=== PATIENT | male | born 1970 | race Caucasian/White ===

== ENCOUNTER → 2017-09-18 | Outpatient (CLI) | payer BC ==
--- NOTE | 2017-09-18 07:51 | MR ---
EXAMINATION TYPE: MR knee RT wo con DATE OF EXAM: 09/18/2017 COMPARISON: NONE HISTORY: Right knee pain per order. Pain, locking sensation, and swelling for over 6 months per patie nt. TECHNIQUE: Multiplanar, multisequence images of the knee is performed without IV contrast. FINDINGS: Evaluation suboptimal due to patient's large body habitus, dedicated knee coil could not be utilized. MEDIAL MENISCUS: Anterior horn is intact without tear. Posterior horn is blunted with abnormal obliqu e signal extending to inferior articular surface sagittal image 9 LATERAL MENISCUS: Anterior and posterior horns are intact without tear. CRUCIATE LIGAMENTS: The anterior and posterior cruciate ligaments are intact. Increased signal distal fibers is present near tibial insertion of ACL. COLLATERAL LIGAMENTS: The medial collateral ligament and lateral collateral ligament complex are inta ct. Mild fluid signal surrounds lateral collateral ligament complex. More moderate fluid signal surro unds medial collateral ligament. EXTENSOR MECHANISM: Visualized quadriceps and patellar tendons are intact. EFFUSION: There is large suprapatellar joint effusion. POPLITEAL CYST: No popliteal/naidu cyst. TRICOMPARTMENT SPACES: There is mild to moderate tricompartment joint space loss and mild spurring mo st prominent patellofemoral compartment. CARTILAGE: There is chondromalacia patella with thinning of articular cartilage particularly superior ly and medially seen best sagittal image 17. Near full-thickness loss at this level is felt present. There is thinning of articular cartilage medial tibiofemoral compartment. BONE MARROW SIGNAL: Heterogeneity consistent with red marrow reconversion is seen. There is increased signal consistent with bone marrow edema medial tibiofemoral compartment most prominent over the med ial tibial plateau coronal image 22 for reference. OTHER: Increased cutaneous fluid superficial infrapatellar space is noted. IMPRESSION: 1. Full-thickness tear posterior horn of medial meniscus. 2. Moderate MCL sprain injury. 3. Osseous contusion and or bone marrow edema medial aspect medial tibiofemoral compartment most prom inent in the tibial plateau. 4. Background fairly moderate tricompartment degenerative changes as detailed above most prominent pa tellofemoral and medial tibiofemoral compartments somewhat pronounced for patient's age. Chondromalac ia patella is present. 5. Large suprapatellar joint effusion. 6. Mild LCL complex sprain injury. 7. Myxoid degeneration ACL.
== END | disposition home or self-care (01) ==
LOC: RADMRIMAIN 06:40
PROVIDERS: ATTEND Orthopaedic Surgery
DX: S83.241A Other tear of medial meniscus, current injury, right knee, initial encounter (principal); S83.411A Sprain of medial collateral ligament of right knee, initial encounter; M17.11 Unilateral primary osteoarthritis, right knee; M22.41 Chondromalacia patellae, right knee; S83.421A Sprain of lateral collateral ligament of right knee, initial encounter; S83.511A Sprain of anterior cruciate ligament of right knee, initial encounter

== ENCOUNTER → 2018-01-30 | Outpatient (CLI) | payer BC ==
[2018-01-30 12:22] LABS: Basophils % (A) 0 %; Eosinophils # (A) 0.2 k/uL (0-0.7); Eosinophils % (A) 2 %; HCT 46.3 % (39.0-53.0); HGB 14.6 gm/dL (13.0-17.5); Lymphocytes # (A) 1.4 k/uL (1.0-4.8); Lymphocytes % (A) 13 %; MCH 26.2 pg (25.0-35.0); MCHC 31.6 g/dL (31.0-37.0); Mean Platelet Volume 7.5; Monocytes # (A) 0.6 k/uL (0-1.0); Monocytes % (A) 5 %; Neutrophils # (A) 8.4 k/uL (1.3-7.7); Neutrophils % (A) 78 %; Platelet Count 211 k/uL (150-450); RBC 5.58 m/uL (4.30-5.90); RDW 14.7 % (11.5-15.5); WBC 10.8 k/uL (3.8-10.6)
[2018-01-30 12:47] LABS: Potassium 4.3 mmol/L (3.5-5.1)
== END | disposition home or self-care (01) ==
LOC: LABPAT 11:38
PROVIDERS: ATTEND Orthopaedic Surgery
DX: Z01.818 Encounter for other preprocedural examination (principal); I10 Essential (primary) hypertension; M23.91 Unspecified internal derangement of right knee; Z01.812 Encounter for preprocedural laboratory examination
CPT/HCPCS: 36415; 80051; 85025; 93005

== ENCOUNTER 2018-02-07 09:36 | Day surgery (SDC) | payer BC ==
[2018-02-04 15:03] VITALS: BMI 46.2
--- NOTE | 2018-02-06 18:41 | HP ---
HISTORY AND PHYSICAL REASON FOR ADMISSION: Surgery is scheduled for 02/07/2018 HISTORY OF PRESENT ILLNESS: Heath Bentley is a 47-year-old patient seen with progressive right knee pain. We discussed treatment options. He elected to proceed with arthroscopy. Consent was obtained. PAST MEDICAL HISTORY: Hypertension. PAST SURGICAL HISTORY: Noncontributory. DAILY MEDICATIONS: Aleve. ALLERGIES: None reported. SOCIAL HISTORY: Noncontributory. PHYSICAL EXAMINATION: Evaluation right knee range of motion 0 to 125 degrees. Moderate to large effusion. Tenderness along the medial joint line. Positive medial Shiraz's. Ligaments are stable. Hip rotation without pain. Distal neurovascular exam intact. RADIOGRAPHS: Radiographs of the right knee revealed moderate medial compartment osteoarthritis, right knee MRI revealed medial meniscal tear. IMPRESSION: 1. Internal derangement, right knee with medial meniscal tear. 2. Hypertension. PLAN: Right knee arthroscopy with partial meniscectomy and debridement. Surgery is 02/07/2018. MMODL / IJN: [id number] /
[~2018-02-07 09:36] MED LIST: DEXAMETHASONE SOD PHOSPHATE 10 MG/ML 1 ML VIAL IV ONE; LIDOCAINE 1% 20 ML VIAL (10MG/ML) FOR IV START INTRADERMA PRN; MIDAZOLAM 2 MG/2 ML VIAL IV PRN; ONDANSETRON 4 MG/2 ML VIAL IVP ONE; ceFAZolin 3 GM in SODIUM CHLORIDE 0.9% 100 ML IVPB ONE; fentaNYL (PF) 50 MCG/ML 2 ML AMP IV PRN
[2018-02-07] MEDS: LACTATED RINGERS 1,000 ML IV SCH ×2 (10:18→13:15)
[2018-02-07] MEDS ORDERED: hydrALAZINE HCL 20 MG/ML 1 ML VIAL IVP ONE ×2 (10:36→11:49)
[2018-02-07] MEDS ORDERED: fentaNYL (PF) 50 MCG/ML 2 ML AMP ONE (11:56)
[2018-02-07] MEDS ORDERED: SUCCINYLCHOLINE CHLORIDE VIAL 200 MG/10 ML VIAL IV ONE (11:56)
[2018-02-07] MEDS ORDERED: PROPOFOL 10 MG/ML 20 ML VIAL IV ONE (11:56)
[2018-02-07] MEDS ORDERED: MIDAZOLAM 2 MG/2 ML VIAL ONE (11:56)
[2018-02-07] MEDS ORDERED: BUPIVACAINE-EPI 0.5%-1:200,000 10 ML VIAL INTRAARTIC ONE (11:58)
[2018-02-07 13:07] VITALS: TEMP 97.2
[2018-02-07 13:13] VITALS: RESP 16
[2018-02-07] MEDS: HYDROmorphone 1 MG/ML 1 ML SYRINGE IVP ONE ×2 (13:15→13:20)
--- NOTE | 2018-02-07 13:23 | P.OP ---
Date of Procedure: 02/07/18 Preoperative Diagnosis: Internal derangement right knee Postoperative Diagnosis: 1. Tear medial meniscus right knee 2. Grade 2/3 chondromalacia medial femoral condyle right knee 3. 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 Grade 3 chondromalacia patella right knee 5. Reactive synovitis medial and suprapatellar compartments right knee 6. Loose body right knee Procedure(s) Performed: 1. Arthroscopic partial medial meniscectomy right knee 2. Arthroscopic chondroplasty medial femoral condyle and tibial plateau right knee 3. Arthroscopic chondroplasty patella right knee 4. Arthroscopic partial synovectomy medial and suprapatellar compartments right knee 5. Arthroscopic removal loose body right knee Anesthesia: LINDA Surgeon: Abhishek Hayes Estimated Blood Loss (ml): 10 Pathology: none sent Condition: stable Disposition: PACU Indications for Procedure: 47-year-old patient seen with progressive right knee pain. After treatment options were discussed, he elected to proceed with arthroscopy. Operative Findings: see description of procedure Description of Procedure: Patient was taken to the operative suite. Patient underwent a general anesthetic by the department of anesthesia. Patient was given preoperative antibiotics. The right lower extremity was placed in a well-padded arthroscopic leg singh. The right leg was prepped and draped in the normal sterile orthopedic fashion. A lateral parapatellar and suprapatellar incision was made. Trochars were inserted. Arthroscopy was initiated. Suprapatellar pouch revealed diffuse thick reactive synovitis. The patellofemoral joint appeared to articulate congruently. There was grade 3 chondromalacia changes of the patellofemoral joint with some osteochondral tears present. The scope was guided into the medial gutter. No loose bodies or plica were identified. The scope was then guided into the medial compartment. A medial parapatellar incision was made. Trocar inserted followed by probe. I immediately encountered a loose body. I introduced loose body forceps and removed the loose body without difficulty. There was a radial tear involving the posterior horn medial meniscus. There were grade 2/3 chondromalacia changes of the medial femoral condyle and grade 3/4 chondromalacia changes of the tibial plateau osteochondral tears on both sides. There was thick reactive synovitis anteriorly. I performed a partial medial meniscectomy down to stable tissue. I performed a chondroplasty of the medial femoral condyle and chondroplasty of the tibial plateau down to stable tissue. I performed a partial synovectomy decompressing the reactive synovitis. The residual meniscus was probed and found to be stable. There was good stability about the residual osteochondral surfaces and good decompression of the synovitis. Scope and probe were then guided into the intercondylar notch. Cruciates were identified, probed and found to be stable. The scope and probe were then guided into lateral compartment. The lateral meniscus was intact and stable. There was no significant chondromalacia of the lateral compartment. There was no synovitis present. The scope was in guided back into the suprapatellar compartment. I introduced a motorized shaver into the super patellar compartment. I performed a chondroplasty of the patella down to stable tissue. I performed a partial synovectomy decompressing the reactive synovitis. The shaver was removed. I took one more look on the entire knee, no residual debris. Instruments were now removed from the joint. The joint was infiltrated with .25% Marcaine. Steri-Strips were applied to the portal sites. Sterile dressings were applied. The patient was placed into a CT hose. No tourniquet was utilized. The patient was awakened, transferred to a bed and taken to recovery stable satisfactory condition.
[2018-02-07 14:56] VITALS: BP 155/98; PULSE 80
== END 2018-02-07 16:29 | disposition home or self-care (01) ==
LOC: OR 09:36
PROVIDERS: ATTEND Orthopaedic Surgery
DX: S83.241A Other tear of medial meniscus, current injury, right knee, initial encounter (principal); X58.XXXA Exposure to other specified factors, initial encounter; M22.41 Chondromalacia patellae, right knee; M65.861 Other synovitis and tenosynovitis, right lower leg; M23.41 Loose body in knee, right knee; K21.9 Gastro-esophageal reflux disease without esophagitis; E66.9 Obesity, unspecified; Z68.42 Body mass index [BMI] 45.0-49.9, adult; Z79.1 Long term (current) use of non-steroidal anti-inflammatories (NSAID)
CPT/HCPCS: 29881; J2250; J0330; J0360; J1100; J0690; J2405; J3010; J1170; J2704